=== PATIENT | female | born 1980 | race Caucasian/White ===

== ENCOUNTER 2017-02-20 06:32 | Emergency (ER) | payer MEDICAID ==
[~2017-02-20] VITALS: Ht 180.3 cm; Wt 127.9 kg
[2017-02-20] MEDS ORDERED: cloNIDine HCL 0.1 MG TAB ONE (06:37)
[2017-02-20] MEDS ORDERED: cloNIDine HCL 0.1 MG TAB PO ONE (07:00)
[2017-02-20 07:16] VITALS: BP 206/126
[2017-02-20] MEDS ORDERED: KETOROLAC TROMETH 60MG/2ML VIAL IM ONE (07:30)
[2017-02-20 12:34] LABS: Urine Bilirubin Negative (Negative); Urine Blood 3+ /uL (Negative); Urine Color Red (Yellow); Urine Glucose Normal (Normal); Urine Ketone Negative (Negative); Urine Mucus FEW (None Seen); Urine Nitrite Negative (Negative); Urine RBC 1084 /hpf (0 - 4); Urine Squamous Epithelial Cell FEW /hpf (<5); Urine Urobilinogen Normal (Negative); Urine pH 5.5 (5.0-8.0)
== END 2017-02-20 08:16 | disposition home or self-care (01) ==
LOC: ER 06:33
DX: M51.36 Other intervertebral disc degeneration, lumbar region (principal); M54.16 Radiculopathy, lumbar region; I10 Essential (primary) hypertension; J45.909 Unspecified asthma, uncomplicated
CPT/HCPCS: 72100; 80307; 81001; 81025; 96372; 99285; J1885